=== PATIENT | female | born 1990 | race American Indian/Alaskan Native ===

== ENCOUNTER 2017-03-28 21:32 | Emergency (ER) | payer SELFPAY ==
[2017-03-28] MEDS ORDERED: MOTRIN ONE (21:43)
[2017-03-28] MEDS ORDERED: ZOFRAN ODT PO ONE (21:45)
[2017-03-28] MEDS ORDERED: MOTRIN PO ONE (21:45)
[2017-03-28] MEDS ORDERED: ZOFRAN ODT ONE (21:45)
--- NOTE | 2017-03-29 02:30 | XRay Report ---
FINAL REPORT EXAM: XR CHEST ROUTINE 2V HISTORY: cough, fever TECHNIQUE: PA and lateral views of the chest were submitted. FINDINGS: Heart size and mediastinum appear normal. The lungs are clear. Pleural fluid is not seen. The bones and soft tissues appear normal. IMPRESSION: Normal chest.
--- NOTE | 2017-03-29 02:39 | Emergency Department Report ---
Minor Respiratory - HPI Chief Complaint: Upper Respiratory Infection Stated Complaint: FLU LIKE S/S Time Seen by Provider: 03/29/17 01:08 Duration: 1 Day Pain Location: Other (generalized) Severity: moderate Minor Respiratory: Yes Rhinorrhea, Yes Sore Throat, Yes Able to Tolerate Fluids , Yes Cough, Yes Sick Contacts (work), Yes Fever, No Ear Pain, No Hemoptysis, No Chest Pain, No Shortness of Breath Other History: This is a 26 y.o. female presenting with body aches, fever, chills, diarrhea, nausea, sore throat, and cough x 1 day. Patient states she left work early because she began to fell lethargic and hot. She attempt to drive home and had to meat puller because she was to tired. She took tylenol around 1400 and called mother to bring her to the ER. She denies chest pain, SOB , and headache ED Review of Systems ROS: Stated complaint: FLU LIKE S/S Other details as noted in HPI Constitutional: no symptoms reported, see HPI, chills, fever. denies: diaphoresis, malaise, weakness Eyes: as per HPI. denies: eye pain, eye discharge, vision change ENT: as per HPI, throat pain, congestion. denies: ear pain, dental pain, hearing loss, epistaxis Respiratory: no symptoms reported, see HPI, cough. denies: orthopnea, shortness of breath, SOB with exertion, SOB at rest, stridor, wheezing Cardiovascular: as per HPI. denies: chest pain, palpitations, dyspnea on exertion, orthopnea, edema, syncope, paroxysmal nocturnal dyspnea Gastrointestinal: as per HPI, nausea, vomiting, diarrhea. denies: abdominal pain, constipation, hematemesis, melena, hematochezia Musculoskeletal: as per HPI, arthralgia Skin: as per HPI. denies: rash, lesions, change in color, change in hair/nails , pruritus Neurological: as per HPI. denies: headache, weakness, numbness, paresthesias, confusion, abnormal gait, vertigo Psychiatric: as per HPI. denies: anxiety, depression, auditory hallucinations, visual hallucinations, homicidal thoughts, suicidal thoughts ED Past Medical Hx - Past Medical History Previous Medical History?: Yes Additional medical history: anemia. overweight - Surgical History Past Surgical History?: No - Social History Smoking Status: Never Smoker Substance Use Type: None - Medications Home Medications: Home Medications Medication Instructions Recorded Confirmed Last Taken Type Acetaminophen/Codeine [Tylenol #3] 1 tab PO TID PRN #15 tab 03/01/15 Unknown Rx Ibuprofen [Motrin] 800 mg PO Q8HR PRN #45 tablet 03/01/15 Unknown Rx Penicillin Vk [Veetids TAB] 500 mg PO QID #28 tablet 03/01/15 Unknown Rx Cephalexin [Keflex] 500 mg PO Q12HR 14 Days #7 cap 03/29/17 Unknown Rx Cetirizine HCl [All Day Allergy] 10 mg PO DAILY 30 Days #30 tablet 03/29/17 Unknown Rx Fluticasone [Flonase] 1 spray NS QDAY #1 bottle 03/29/17 Unknown Rx Minor Respiratory Exam - Exam General: Vital signs noted. No distress. Alert and acting appropriately. HEENT: Yes Pharyngeal Erythema, Yes Moist Mucous Membranes, Yes Rhinorrhea, Yes Frontal Tenderness, Yes Maxillary Tenderness, No Pharyngeal Exudates, No Conjuctival Injection Ear: Neither TM Bulge, Neither TM Erythema, Neither EAC Pain, Neither EAC Discharge Neck: Yes Supple, No Adenopathy Lungs: Yes Good Air Exchange, Yes Ronchi, Yes Cough, No Wheezes, No Stridor, No Labored Respirations, No Retractions, No Use of Accessory Muscles, No Other Abnormal Lung Sounds Heart: Yes Regular, No Murmur Abdomen: Yes Normal Bowel Sounds, No Tenderness, No Peritoneal Signs Skin: No Rash, No Edema Neurologic: Alert and oriented, no deficits. Musculoskeletal: Unremarkable. ED Course Vital Signs 03/28/17 03/28/17 21:37 21:40 Temperature 101.4 F H 101.4 F H Pulse Rate 113 H 87 Respiratory 20 18 Rate Blood Pressure 114/67 [Left] Blood Pressure 114/67 [Right] O2 Sat by Pulse 97 99 Oximetry Vital Signs 03/28/17 03/28/17 03/29/17 21:37 21:40 02:50 Temperature 101.4 F H 101.4 F H 97.9 F Pulse Rate 113 H 87 Respiratory 20 18 Rate Blood Pressure 114/67 [Left] Blood Pressure 114/67 [Right] O2 Sat by Pulse 97 99 Oximetry ED Medical Decision Making - Lab Data Result diagrams: 03/29/17 03:00 03/29/17 03:00 - Radiology Data Radiology results: image reviewed FINDINGS: Heart size and mediastinum appear normal. The lungs are clear. Pleural fluid is not seen. The bones and soft tissues appear normal. IMPRESSION: Normal chest. Critical care attestation.: If time is entered above; I have spent that time in minutes in the direct care of this critically ill patient, excluding procedure time. ED Disposition Clinical Impression: Acute bacterial sinusitis, Gastroenteritis Disposition: - TO HOME OR SELFCARE Is pt being admited?: No Does the pt Need Aspirin: No Condition: Stable Instructions: Sinusitis (ED), Gastroenteritis (ED) Additional Instructions: Continue taking Tylenol for fever control. Prescriptions: Cephalexin [Keflex] 500 mg PO Q12HR 14 Days #7 cap Cetirizine HCl [All Day Allergy] 10 mg PO DAILY 30 Days #30 tablet Fluticasone [Flonase] 1 spray NS QDAY #1 bottle Referrals: MICHAEL MCARTHUR MD [Primary Care Provider] - 3-5 Days [facility] [Outside] - 3-5 Days [facility] [Outside] - 3-5 Days Forms: Work/School Release Form(ED) Time of Disposition: 04:57 Print Language: VIET[place]ESE
[2017-03-29 03:29] LABS: Basophils % (Auto) 0.2 % (0.0-1.8); Eosinophils % (Auto) 0.5 % (0.0-4.3); Hematocrit 38.6 % (30.3-42.9); Hemoglobin 12.9 gm/dl (10.1-14.3); Mean Corpuscular HGB Conc 34 % (30-34); Mean Corpuscular Hemoglobin 29 pg (28-32); Mean Corpuscular Volume 87 fl (79-97); Platelet Count 271 K/mm3 (140-440); Red Blood Count 4.46 M/mm3 (3.65-5.03); Red Cell Distribution Width 13.8 % (13.2-15.2)
[2017-03-29 03:59] LABS: Alanine Aminotransferase 19 units/L (7-56); Albumin 4.2 g/dL (3.9-5); Albumin/Globulin Ratio 1.4 %; Alkaline Phosphatase 69 units/L (35-129); Anion Gap 19 mmol/L; BUN/Creatinine Ratio 13; Blood Urea Nitrogen 9 mg/dL (7-17); Calcium 8.9 mg/dL (8.4-10.2); Carbon Dioxide 26 mmol/L (22-30); Chloride 98.5 mmol/L (98-107); Glucose 79 mg/dL (65-100); Potassium 4.3 mmol/L (3.6-5.0); Sodium 139 mmol/L (137-145); Total Protein 7.1 g/dL (6.3-8.2)
[2017-03-29] MEDS ORDERED: KEFLEX PO ONE (04:05)
[2017-03-29 05:10] VITALS: BP 118/68
== END 2017-03-29 05:10 | disposition home or self-care (01) ==
LOC: ED 21:32
DX: J01.90 Acute sinusitis, unspecified (principal); B96.89 Other specified bacterial agents as the cause of diseases classified elsewhere; K52.9 Noninfective gastroenteritis and colitis, unspecified; Z86.2 Personal history of diseases of the blood and blood-forming organs and certain disorders involving the immune mechanism
CPT/HCPCS: 36415; 71020; 80053; 85025; 87116; 87400; 87430; 99284; Q0162

== ENCOUNTER 2017-12-05 00:05 | Emergency (ER) | payer OTHER ==
[2017-12-05] MEDS ORDERED: MOTRIN PO ONE (00:54)
--- NOTE | 2017-12-05 03:25 | XRay Report ---
FINAL REPORT EXAM: XR ANKLE 2V LT HISTORY: left viviane pain COMPARISON: None available. FINDINGS: Two views of the left ankle obtained. Bony structures are intact. Joint spaces are preserved. No acute fracture dislocation. IMPRESSION: No acute bony abnormality.
--- NOTE | 2017-12-05 03:41 | Emergency Department Report ---
ED Lower Extremity HPI - General Chief Complaint: Extremity Injury, Lower Stated Complaint: LT ANKLE PAIN Time Seen by Provider: 12/05/17 02:30 Source: patient Mode of arrival: Ambulatory Limitations: No Limitations - History of Present Illness Initial Comments: Patient 27-year-old -[place] female states she fell and twisted her ankle 4 days ago patient seen at the [facility] for nail avulsion same day right forearm however did not get seen for left ankle states < continues to swell A can have pain pain described as 4/10 aching and throbbing pain is exacerbated by weight bearing and walking pain relieved by offloading and rest patient advised not taking any NSAIDs for pain MD Complaint: ankle injury Onset/Timin -: days(s) Injury: Ankle: Left (twisted during fall ) Type of Injury: eversion Place: street/outdoors Severity: moderate Severity scale (0 -10): 4 Improves With: rest Worsens With: weight bearing, movement, palpation Context: fall Associated Symptoms: snap/pop sensation, swelling, tingling, able to partially bear weight - Related Data Previous Rx's Medication Instructions Recorded Last Taken Type Acetaminophen/Codeine [Tylenol #3] 1 tab PO TID PRN #15 tab 03/01/15 Unknown Rx Ibuprofen [Motrin] 800 mg PO Q8HR PRN #45 tablet 03/01/15 Unknown Rx Penicillin Vk [Veetids TAB] 500 mg PO QID #28 tablet 03/01/15 Unknown Rx Cetirizine HCl [All Day Allergy] 10 mg PO DAILY 30 Days #30 tablet 03/29/17 Unknown Rx Fluticasone [Flonase] 1 spray NS QDAY #1 bottle 03/29/17 Unknown Rx cephALEXin [Keflex] 500 mg PO Q12HR 14 Days #7 cap 03/29/17 Unknown Rx Cyclobenzaprine [Flexeril] 10 mg PO BID PRN #20 tablet 12/05/17 Unknown Rx Naproxen [Naprosyn] 500 mg PO BID #30 tablet 12/05/17 Unknown Rx Allergies Allergy/AdvReac Type Severity Reaction Status Date / Time No Known Allergies Allergy Verified 03/01/15 06:07 ED Review of Systems ROS: Stated complaint: LT ANKLE PAIN Other details as noted in HPI Constitutional: denies: chills, fever Eyes: denies: eye pain, eye discharge, vision change ENT: denies: ear pain, throat pain Respiratory: denies: cough, shortness of breath, wheezing Cardiovascular: denies: chest pain, palpitations Endocrine: no symptoms reported Gastrointestinal: denies: abdominal pain, nausea, diarrhea Genitourinary: denies: urgency, dysuria, discharge Musculoskeletal: joint swelling, myalgia. denies: back pain, arthralgia Skin: denies: rash, lesions Neurological: denies: headache, weakness, numbness, paresthesias, abnormal gait , vertigo Psychiatric: denies: anxiety, depression Hematological/Lymphatic: denies: easy bleeding, easy bruising ED Past Medical Hx - Past Medical History Previous Medical History?: No Additional medical history: anemia. overweight - Surgical History Past Surgical History?: No - Social History Smoking Status: Never Smoker Substance Use Type: None - Medications Home Medications: Home Medications Medication Instructions Recorded Confirmed Last Taken Type Acetaminophen/Codeine [Tylenol #3] 1 tab PO TID PRN #15 tab 03/01/15 Unknown Rx Ibuprofen [Motrin] 800 mg PO Q8HR PRN #45 tablet 03/01/15 Unknown Rx Penicillin Vk [Veetids TAB] 500 mg PO QID #28 tablet 03/01/15 Unknown Rx Cetirizine HCl [All Day Allergy] 10 mg PO DAILY 30 Days #30 tablet 03/29/17 Unknown Rx Fluticasone [Flonase] 1 spray NS QDAY #1 bottle 03/29/17 Unknown Rx cephALEXin [Keflex] 500 mg PO Q12HR 14 Days #7 cap 03/29/17 Unknown Rx Cyclobenzaprine [Flexeril] 10 mg PO BID PRN #20 tablet 12/05/17 Unknown Rx Naproxen [Naprosyn] 500 mg PO BID #30 tablet 12/05/17 Unknown Rx ED Physical Exam - General Limitations: No Limitations General appearance: alert, in no apparent distress - Head Head exam: Present: atraumatic, normocephalic - Eye Eye exam: Present: normal appearance - ENT ENT exam: Present: mucous membranes moist - Neck Neck exam: Present: normal inspection - Respiratory Respiratory exam: Present: normal lung sounds bilaterally. Absent: respiratory distress - Cardiovascular Cardiovascular Exam: Present: regular rate, normal rhythm. Absent: systolic murmur, diastolic murmur, rubs, gallop - GI/Abdominal GI/Abdominal exam: Present: soft, normal bowel sounds. Absent: distended, rebound, bruit - Rectal Rectal exam: Present: deferred - Extremities Exam Extremities exam: Present: full ROM, tenderness (left lateral ankle ), normal capillary refill, joint swelling. Absent: calf tenderness - Expanded Lower Extremity Exam Left Ankle exam: Present: full ROM, tenderness, swelling. Absent: abrasion, laceration, ecchymosis, deformity, crepidus, dislocation, erythema, anterior draw sign Foot/Toe exam: Present: normal inspection, full ROM, swelling. Absent: tenderness, abrasion, laceration, ecchymosis, deformity, crepidus, dislocation, erythema, amputation, puncture wound, foreign body, calcaneal tenderness, tenderness at base of 5th metatarsal, nail avulsion, subungual hematoma Neuro vascular tendon exam: Present: no vascular compromise. Absent: pulse deficit, abnormal cap refill, motor deficit, sensory deficit, tendon deficit, extremity cold to touch, pallor, abnormal 2-point discrimination, decreased fine /light touch, foot drop, peroneal nerve deficit, significant pain with passive ROM of distal joint Gait: Positive: observed and normal - Back Exam Back exam: Present: normal inspection, muscle spasm. Absent: CVA tenderness (R) , CVA tenderness (L) (with walking), paraspinal tenderness, vertebral tenderness - Neurological Exam Neurological exam: Present: alert, oriented X3, CN II-XII intact, normal gait, motor sensory deficit, reflexes normal - Expanded Neurological Exam Expanded Patient oriented to: Present: person, place, time Sensory exam: Lower Extremity Light Touch: Normal, Lower Extremity Pin Prick: Normal, Lower Extremity Temperature: Normal, LE 2 Point Discrimination: Normal Motor strength exam: RLE: 5, LLE: 5 DTR: knee (R): 2+, knee (L): 2+, ankle (R): 2+, ankle (L): 2+ Best Eye Response (Platinum): (4) open spontaneously Best Motor Response (Platinum): (6) obeys commands Best Verbal Response (Platinum): (5) oriented Platinum Total: 15 - Psychiatric Psychiatric exam: Present: normal affect, normal mood - Skin Skin exam: Present: warm, dry, intact, normal color. Absent: rash ED Course Vital Signs 12/05/17 00:48 Temperature 98.5 F Pulse Rate 76 Respiratory 16 Rate Blood Pressure 110/67 O2 Sat by Pulse 98 Oximetry ED Lower Extremity MDM - Radiology Data Radiology results: report reviewed, image reviewed no fracture no soft tissue abnormality - Medical Decision Making X-ray normal no fracture no mild soft tissue swelling soft tissue no other abnormality patient examined to her there is minimal swelling to the left lateral ankle no ecchymosis or abrasions or lacerations no bleeding no deformity plan Ángel wrap we'll offer crutches and says muscle relaxants patient will follow with orthopedics in 2-3 days patient verbalizes understanding and agreement with same will be DC'd home in stable condition at this time Critical care attestation.: If time is entered above; I have spent that time in minutes in the direct care of this critically ill patient, excluding procedure time. ED Disposition Clinical Impression: Left ankle strain Qualifiers: Encounter type: initial encounter Qualified Code(s): S96.912A - Strain of unspecified muscle and tendon at ankle and foot level, left foot, initial encounter Disposition: DC-01 TO HOME OR SELFCARE Is pt being admited?: No Does the pt Need Aspirin: No Condition: Good Instructions: Ankle Exercises (GEN) Prescriptions: Cyclobenzaprine [Flexeril] 10 mg PO BID PRN #20 tablet PRN Reason: Muscle Spasm Naproxen [Naprosyn] 500 mg PO BID #30 tablet Referrals: WIL STAHL MD [Staff Physician] - 3-5 Days [facility] [Outside] - 3-5 Days Forms: Work/School Release Form(ED) Time of Disposition: 03:57
[2017-12-05 04:50] VITALS: BP 102/58
== END 2017-12-05 03:45 | disposition home or self-care (01) ==
LOC: ED 00:05
DX: S96.912A Strain of unspecified muscle and tendon at ankle and foot level, left foot, initial encounter (principal); D64.9 Anemia, unspecified; Z79.899 Other long term (current) drug therapy; X50.1XXA Overexertion from prolonged static or awkward postures, initial encounter; Y93.89 Activity, other specified; Y99.8 Other external cause status; Y92.488 Other paved roadways as the place of occurrence of the external cause